=== PATIENT | female | born 1965 | race Caucasian/White ===

== ENCOUNTER 2023-02-21 05:38 | Day surgery (SDC) | payer OTHER ==
[2023-02-16 12:12] VITALS: BP 94/49
[2023-02-16 12:47] LABS: BASOPHILS % (AUTO) 0.7 % (0.0-5.0); EOSINOPHILS % (AUTO) 1.3 % (0.0-8.0); HEMATOCRIT 39.9 % (36-48); LYMPHOCYTES % (AUTO) 24.2 % (21.0-51.0); MEAN CORPUSCULAR HEMOGLOBIN 27.9 pg (27.0-33.0); MEAN CORPUSCULAR HGB CONC 32.8 g/dL (32.0-36.0); MEAN CORPUSCULAR VOLUME 84.9 fL (79-99); MONOCYTES % (AUTO) 5.7 % (3.0-13.0); NEUTROPHILS % (AUTO) 67.7 % (40.0-77.0); PLATELET COUNT (AUTO) 296 K/uL (130-400); RED CELL DISTRIBUTION WIDTH 13.6 % (11.0-15.5); WHITE BLOOD COUNT (AUTO) 5.6 K/uL (4.8-10.8)
[2023-02-16 12:53] LABS: APPEARANCE,URINE CLEAR (CLEAR); BILIRUBIN,URINE NEGATIVE (NEGATIVE); COLOR,URINE COLORLESS (YELLOW); GLUCOSE, URINE (UA) NEGATIVE (NEGATIVE); KETONES,URINE NEGATIVE (NEGATIVE); LEUKOCYTE ESTERASE ,URINE NEGATIVE Leu/uL (NEGATIVE); NITRATE,URINE NEGATIVE (NEGATIVE); OCCULT BLOOD,URINE NEGATIVE (NEGATIVE); PH,URINE 7.5 (5.0-8.0); PROTEIN,URINE NEGATIVE (NEGATIVE); UROBILINOGEN,URINE 0.2 mg/dL (0.2-1.0)
[~2023-02-21] VITALS: Ht 167.6 cm; Wt 56.9 kg
[2023-02-21] VITALS (17 sets, daily range): BP systolic 83–128; BP diastolic 37–62
[~2023-02-21 05:38] MED LIST: CALC-1009 PO; COLLAGEN PEPTIDES PO; ESTR-3 PO; GALC120P SQ; LEVO100T12 PO; PREM625 PO; SUMA25TA9 PO; VALA500T42 PO; [UNRECOGNIZED DRUG - CODE] PO
[2023-02-21] MEDS: LACTATED RINGERS 1000ML 1,000 ML IV ONE ×2 (06:07→06:46)
[2023-02-21] MEDS ORDERED: MIDAZOLAM HCL 1 MG/ML 2ML VIAL ONE (06:37)
[2023-02-21] MEDS ORDERED: PROPOFOL 10 MG/ML 20ML VIAL IV ONE (06:37)
[2023-02-21] MEDS ORDERED: DEXAMETHASONE SOD PHOSPHATE 10MG/ML 1ML VIAL ONE (06:37)
[2023-02-21] MEDS ORDERED: LIDOCAINE PF 100MG/5ML (2%) SYRINGE 5ML ONE (06:37)
[2023-02-21] MEDS ORDERED: ONDANSETRON 4MG INJ ONE (06:38)
[2023-02-21] MEDS ORDERED: FENTANYL CITRATE PF 50 MCG/1 ML 2ML VIAL ONE (06:38)
[2023-02-21] MEDS ORDERED: LIDOCAINE HCL 1% MDV 50ML VIAL ONE (06:51)
[2023-02-21] MEDS ORDERED: DEXMEDETOMIDINE HCL 200 MCG/2 ML VIAL IV ONE (06:52)
[2023-02-21] MEDS ORDERED: EPHEDRINE SULFATE 50 MG/ML AMPULE ONE (07:16)
== END 2023-02-21 09:05 | disposition home or self-care (01) ==
LOC: DAH 05:38
PROVIDERS: ATTEND Obstetrics & Gynecology
DX: N84.1 Polyp of cervix uteri (principal); Z20.822 Contact with and (suspected) exposure to COVID-19; Z90.89 Acquired absence of other organs; Z98.890 Other specified postprocedural states; Z82.49 Family history of ischemic heart disease and other diseases of the circulatory system; Z80.9 Family history of malignant neoplasm, unspecified; Z79.899 Other long term (current) drug therapy
CPT/HCPCS: 84703; 85025; 86850 ×2; 86900 ×2; 86901 ×2; 87426; 81003; 36415 ×2; 58558; 81025; A6260; A4663; J7030; A4355; J7120; J3010; J1100; J2001; J3490 ×3; J2250; J2704; J2405; A4351; A4215; A4223; A4222; A4221

== ENCOUNTER → 2023-04-05 | Outpatient (CLI) | payer OTHER | END | disposition home or self-care (01) | LOC: RAH 13:08 | PROVIDERS: ATTEND Urology | DX: R39.14 Feeling of incomplete bladder emptying (principal) | CPT/HCPCS: 76770 ==